=== PATIENT | male | born 1955 | race Hispanic/Latino ===

== ENCOUNTER → 2023-02-04 | Outpatient (CLI) | payer MEDICARE | LOC: US 07:26 | PROVIDERS: ATTEND Family Medicine | DX: Z13.6 Encounter for screening for cardiovascular disorders (principal); F17.210 Nicotine dependence, cigarettes, uncomplicated | CPT/HCPCS: 71250; 73522; 76770; 93925 ==

== ENCOUNTER 2023-05-02 06:48 | Observation (INO) | payer MEDICARE ==
[2023-04-29 10:42] LABS: BASOPHILS # (AUTO) 0.1 (0.0-0.1); BASOPHILS % 0.7 % (0.0-1.0); EOSINOPHILS # (AUTO) 0.1 (0.0-0.4); EOSINOPHILS % 1.1 % (0.0-6.0); HEMATOCRIT 39.1 % (38.2-49.6); HEMOGLOBIN 13.6 g/dL (14.0-18.0); LYMPHOCYTES # (AUTO) 2.1 (1.0-3.2); LYMPHOCYTES % 25.4 % (18.0-39.1); MEAN CORPUSCULAR HEMOGLOBIN 30.4 pg (28-32); MEAN CORPUSCULAR HGB CONC 34.8 g/dL (31-35); MEAN CORPUSCULAR VOLUME 87.3 fL (81-99); MONOCYTES # (AUTO) 0.6 (0.2-0.8); MONOCYTES % 7.8 % (4.4-11.3); NEUTROPHILS # (AUTO) 5.2 (2.1-6.9); NEUTROPHILS % 64.8 % (38.7-80.0); PLATELET COUNT 213 x10e3/uL (140-360); RED BLOOD COUNT 4.48 x10e6/uL (4.3-5.7); RED CELL DISTRIBUTION WIDTH 12.8 % (11.7-14.4)
[2023-04-29 11:07] LABS: ANION GAP 14.1 mmol/L (8-16); CALCIUM 9.5 mg/dL (8.4-10.2); CREATININE, SERUM 0.9 mg/dL (0.72-1.25); POTASSIUM 4.1 mmol/L (3.5-5.1)
[~2023-05-02 06:48] MED LIST: ASPIRIN81 MG PO; CRESTOR10 MG PO; HYDROCHLOROTHIA50 MG; HYDROCODONE/APAP 7.5MG-325MG 1 EA TAB PO ONE; LISINOPRIL10 MG PO
[2023-05-02] MEDS ORDERED: ACETAMINOPHEN 1000 MG/100 ML 100 ML IV ONE (07:27)
[2023-05-02] MEDS ORDERED: DEXAMETHASONE SOD PHOS 10 MG/1 ML VIAL ONE (07:51)
[2023-05-02] MEDS ORDERED: LACTATED RINGER'S 1,000 ML ONE (07:51)
[2023-05-02] MEDS ORDERED: CELECOXIB 200 MG CAP ONE (07:51)
[2023-05-02] MEDS ORDERED: GABAPENTIN 300 MG CAP ONE (07:51)
[2023-05-02] MEDS ORDERED: CEFAZOLIN SODIUM 2 GM ONE ×2 (07:51→12:25)
[2023-05-02] MEDS ORDERED: Vancomycin IV 1,000 MG ONE (07:58)
[2023-05-02] MEDS ORDERED: TRANEXAMIC ACID 20 ML ONE (07:58)
[2023-05-02] MEDS ORDERED: SODIUM CHLORIDE 0.9% 500ML 500 ML ONE (07:59)
[2023-05-02] MEDS ORDERED: ROPIVACAINE 246.25 MG, EPINEPHRINE HCL 1:1000 1ML 0.5 MG, CLONIDINE HCL 0.08 MG, KETORO... INJ ONE ×5 (08:00)
[2023-05-02] MEDS ORDERED: DOCUSATE SODIUM 100 MG CAP PO PRN (10:15)
[2023-05-02] MEDS ORDERED: ONDANSETRON HCL INJ 2MG/ML 2ML 2 MG/ML VIAL IV PRN (10:15)
[2023-05-02] MEDS ORDERED: DIPHENHYDRAMINE HCL INJ 50 MG/ML VIAL IV PRN (10:15)
[2023-05-02] MEDS ORDERED: HYDROCODONE/APAP 5MG-325MG TAB PO PRN (10:15)
[2023-05-02] MEDS ORDERED: HYDROCODONE/APAP 7.5MG-325MG 1 EA TAB PO PRN (10:15)
[2023-05-02] MEDS ORDERED: SODIUM CHLORIDE 0.9% 1000ML 1,000 ML IV SCH (10:15)
[2023-05-02 10:19] VITALS: TEMP 97.8
[2023-05-02] MEDS ORDERED: FENTANYL CITRATE/PF 100MCG/2 ML INJ ONE ×3 (10:53→12:33)
[2023-05-02] MEDS ORDERED: HYDROCODONE/APAP 7.5MG-325MG 1 EA TAB ONE (12:15)
[2023-05-02] MEDS ORDERED: MIDAZOLAM HCL 2 MG/2 ML VIAL ONE (12:33)
[2023-05-02] MEDS ORDERED: PROPOFOL IV EMULSION 10 MG/ML 20 ML VIAL ONE (13:14)
[2023-05-02] MEDS ORDERED: KETOROLAC TROMETHAMINE 30 MG/ML VIAL ONE (13:14)
[2023-05-02] MEDS ORDERED: EPHEDRINE SULFATE INJ 50 MG/ML VIAL ONE (13:14)
[2023-05-02] MEDS ORDERED: SEVOFLURANE INHAL SOLN 250 ML PEN BTL ONE (13:14)
[2023-05-02] MEDS ORDERED: POVIDONE IODINE 0.05% 0.05 % ML PO ONE (13:14)
[2023-05-02] MEDS ORDERED: ONDANSETRON HCL INJ 2MG/ML 2ML 2 MG/ML VIAL ONE (13:14)
[2023-05-02] MEDS ORDERED: LIDOCAINE HCL 2% LOCAL INJ 5 ML SDV VIAL INJ ONE (13:14)
[2023-05-02] MEDS ORDERED: DEXAMETHASONE SOD PHOS INJ 4 MG/ML SDV ONE (13:14)
[2023-05-02] MEDS ORDERED: ROPIVACAINE 0.5% 5 MG/ML 30 ML SDV ONE (13:24)
[2023-05-02 13:25] VITALS: BP 129/74; PULSE 72; RESP 16; O2SAT 98
[2023-05-02] MEDS ORDERED: ASPIRIN 325 MG TAB PO SCH (17:00)
[2023-05-03] MEDS ORDERED: ACETAMINOPHEN 1000 MG/100 ML IV PRN (10:15)
== END 2023-05-02 14:05 | disposition home health service (06) ==
LOC: OR 06:48 → PACU V 10:10
PROVIDERS: ADMIT Specialist; ATTEND Specialist
DX: M16.51 Unilateral post-traumatic osteoarthritis, right hip (principal); S73.004S Unspecified dislocation of right hip, sequela; I10 Essential (primary) hypertension; Z01.812 Encounter for preprocedural laboratory examination; Z01.818 Encounter for other preprocedural examination; Z79.899 Other long term (current) drug therapy; Z79.82 Long term (current) use of aspirin
CPT/HCPCS: 36415; 71046; 72170; 80048; 85025; 86850; 86900; 86920; C1713; C1776; G0378; J0171; J1100; J1885; J2001; J2250; J2405; J2795; J3370; J7040

== ENCOUNTER 2023-09-08 10:00 | Outpatient (RCR) | payer MEDICARE ==
[~2023-09-08 10:00] MED LIST changes: -HYDROCODONE/APAP 7.5MG-325MG 1 EA TAB PO ONE
== END 2023-09-13 ==
LOC: PT 10:00
PROVIDERS: ATTEND Specialist
DX: Z47.1 Aftercare following joint replacement surgery (principal); Z96.641 Presence of right artificial hip joint; M62.81 Muscle weakness (generalized); R26.2 Difficulty in walking, not elsewhere classified

== ENCOUNTER 2023-09-27 09:57 | Outpatient (RCR) | payer MEDICARE | END 2023-10-13 | LOC: PT 09:57 | PROVIDERS: ATTEND Specialist | DX: Z47.1 Aftercare following joint replacement surgery (principal); Z96.641 Presence of right artificial hip joint; M62.81 Muscle weakness (generalized); R26.2 Difficulty in walking, not elsewhere classified ==